=== PATIENT | male | born 1965 | race Caucasian/White ===

== ENCOUNTER 2019-02-22 18:38 | Observation (INO) | payer SELFPAY ==
[2019-02-22 20:44] LABS: Hemoglobin A1c 7.3 % (4.0-6.0)
[2019-02-22] MEDS ORDERED: Lorazepam 2 MG/ML VIAL ONE (20:51)
--- NOTE | 2019-02-22 21:25 | PDOC.EVN ---
Event Note - Event Note Event Note: H&P dictated [id number]
[2019-02-22] MEDS ORDERED: Aspirin 325 mg Enteric Coated Tablet PO SCH (22:00)
--- NOTE | 2019-02-23 02:35 | HP ---
CHIEF COMPLAINT: Speech abnormality. HISTORY OF PRESENT ILLNESS: Mr. Werner is a 53-year-old male with past medical history of morbid obesity, presents to the [facility] with sudden onset of expressive aphasia. As per patient, suddenly he was holding a cup in his hand and was trying to talk, but was unable to get the words right. The cup dropped and the symptoms lasted for about 75 minutes. Workup including a CT of the brain and CT angiogram, no acute finding. The patient's symptoms resolved. The patient is going to be admitted for further workup and management and monitoring. PAST MEDICAL HISTORY: Morbid obesity. PAST SURGICAL HISTORY: Anal fissure repair. SOCIAL HISTORY: Denies smoking, alcohol drinking, or drug abuse. FAMILY HISTORY: Reviewed and noncontributory. HOME MEDICATIONS: None. REVIEW OF SYSTEMS: Review of 14 systems negative except what is mentioned history of present illness. ALLERGIES: NO KNOWN ALLERGIES. PHYSICAL EXAMINATION: GENERAL: Patient is awake, alert, does not appear to be in distress, morbidly obese. VITAL SIGNS: Blood pressure 171/87, pulse is 70, respiratory rate is 18, temperature is 98.3. HEAD AND NECK: Normocephalic, atraumatic. Neck is supple. No JVD. CHEST: Clear bilateral air entry. HEART: S1, S2. Regular. ABDOMEN: Obese, soft. Bowel sounds present. NEUROLOGIC: Awake, alert, oriented x3. Speech is normal, no focal deficit. PSYCH: Unable to assess. EXTREMITIES: No clubbing or cyanosis. DIAGNOSTIC STUDIES: CT of the brain and CT angiogram of the head and neck was done and it was reported as unremarkable. No acute finding. ASSESSMENT: 1. Transient ischemic attack/expressive aphasia, resolved. 2. Morbid obesity. PLAN: 1. Admit. 2. Telemetry monitoring. 3. Aspirin. 4. Frequent neuro checks. 5. We will get lipid profile/panel and start the patient on statin. 6. Check hemoglobin A1c. 7. MRI of the brain in a.m. 8. 2D echo. 9. Deep venous thrombosis prophylaxis. Low molecular weight heparin. 10. Expected length of stay at least 1 midnight if patient is stable and further workup negative. Job ID: [id number]
[2019-02-23 02:43] VITALS: BMI 60.2
[2019-02-23 05:32] LABS: Cardiac Risk 5.6 (Less than 4.5)
[2019-02-23] MEDS ORDERED: metFORMIN 500 MG TAB PO SCH (08:00)
[2019-02-23] MEDS ORDERED: Enoxaparin Sodium 40 MG/0.4 ML SYRINGE SC SCH (09:00)
[2019-02-23] MEDS ORDERED: Aspirin 325 mg Enteric Coated Tablet PO SCH (09:00)
--- NOTE | 2019-02-23 11:02 | CON ---
DATE OF TELEMEDICINE CONSULTATION WITH RAMONE BENTLEY: 02-23-19 CHIEF COMPLAINT: Dysarthria. HISTORY OF PRESENT ILLNESS: The patient is a 53-year-old man who reports he just could not talk for about 45 minutes to an hour. The words were not coming out right and this occurred yesterday and he was not doing anything strenuous at that time and there is no prior history of a similar event. No other symptoms were described including weakness, numbness or dizziness or vision problems. There is no history of any heart problems. PREVIOUS MEDICAL HISTORY: He is quite healthy other than being overweight. HOME MEDICATIONS: None. PAST SURGICAL HISTORY: He had an anal fissure repair 30 years ago. FAMILY HISTORY: He has one sister who is 50, healthy. Mother of cancer at 64 or 65 years of age. Father, who is a radiologist is 78, he has current cardiac stents. SOCIAL HISTORY: He lives with his family and does not smoke or drink. REVIEW OF SYSTEMS: PULMONARY: Negative for any cough or shortness of breath. GI: Negative for nausea, vomiting, or diarrhea. GENITOURINARY: Negative for urinary urgency or frequency. DERMATOLOGIC: Negative for rash. NEUROLOGIC: Positive for dysarthria. LABORATORY DATA: White count 12.7, hemoglobin 14.3, hematocrit 44.1, platelet count 268. Chemistry; sodium 139, potassium 3.9, chloride 101, bicarbonate 25, BUN 14 , creatinine 0.97, glucose 194, triglycerides 243, cholesterol 214, LDL 127, HDL 38, heart disease risk ratio 5.6, and his CT head was reportedly negative. CT angio was negative except for nonvisualization of the right vertebra. These are outside reports reviewed from his chart. PHYSICAL EXAMINATION: VITAL SIGNS: Blood pressure 168/79, temperature 97.7, pulse 70, respiratory rate 16. GENERAL APPEARANCE: Well-built, well-nourished, slightly overweight man who reports his body weight to be 475 pounds. CHEST: Clear vesicular breathing. CARDIOVASCULAR: S1 and S2 heard. No murmurs. ABDOMEN: Soft and nontender. No organomegaly noted. NEUROLOGIC: Higher intellectual functions. Normal orientation to time, place, and person. Appropriate conversation. Cranial nerves 2 through 12, normal extraocular movements, no facial asymmetry noted, and tongue midline. No atrophy noted. Normal sensation of face bilaterally. Pupils are 2 mm, reactive. Normal hearing to finger rub bilaterally. Normal elevation of palate. Tongue midline. Motor, bulk normal. Tone, normal. Strength 5/5 throughout in iliopsoas, hamstrings, quadriceps, ankle dorsiflexion, plantar flexion, deltoid, biceps, triceps, wrist extension and flexion, finger extension and flexion bilaterally, and cerebellar normal [id number] and [id number], and sensory normal to touch bilaterally in upper and lower extremities. Deep tendon reflexes 1+ throughout. IMPRESSION: The patient is a 53-year-old man with history of sudden onset of dysarthria, sounds more like aphasia and dysarthria, difficulty in saying the words and he has negative history of stroke in his family. His examination was normal today. Diagnosis is most consistent with likely TIA. TREATMENT RECOMMENDATIONS: 1. Please start the patient on aspirin plus statin. 2. He may need consultation with specialist for weight loss. 3. He will also need echocardiogram and an MRI. If MRI is difficult to obtain or negative, he can be discharged home on current medications, mainly aspirin and statin. Job ID: [id number] [facility]
[2019-02-23 12:23] VITALS: BP 161/98; TEMP 98.1
--- NOTE | 2019-02-23 14:02 | DIS ---
DATE OF ADMISSION: 02/22/2019 DATE OF DISCHARGE: 02/23/2019 DISCHARGE DISPOSITION: To home. PRIMARY DISCHARGE DIAGNOSES: 1. Aphasia with TIA resolved. 2. Morbid obesity with BMI of 60. 3. Dyslipidemia. 4. New onset diabetes mellitus type 2. PROCEDURES DONE DURING HOSPITALIZATION: The patient has had CT brain and CT angio of brain done at [facility], which were negative. HbA1c 7.3, LDL 127, triglycerides 243. DISCHARGE MEDICATION: 1. Metformin 500 mg p.o. twice daily. 2. Aspirin 81 mg p.o. daily. 3. Lipitor 40 mg p.o. at bedtime. INPATIENT CONSULT: Dr. Sara Robledo for Neurology. ALLERGIES: NO KNOWN DRUG ALLERGIES. DISCHARGE PLAN: The patient to follow up with primary care physician in 1 week. He also needs to do fingerstick checks of blood glucose twice daily and record for 10 days to follow up with primary care physician for changes in his medication. BRIEF COURSE DURING HOSPITALIZATION: The patient initially got admitted with complaints of aphasia for a duration of 75 minutes. This happened suddenly at home. Initial CT angio of the brain done at [facility] has not revealed any acute pathology. He was also found to have new onset diabetes mellitus with HbA1c of 7.2. His LDL was 127 with triglycerides of 243. The patient's BMI is around 60.2, weighs around 468 pounds and is 6 foot 2 inches. He was apparently healthy up until he came here except for morbid obesity per the patient. The patient was counseled with regard to life-threatening obesity and drastic changes in his dietary habits and to follow exercise protocol to lose weight. He is otherwise hemodynamically stable with his aphasia completely resolving. He is ambulating and eating well prior to discharge. He is communicating very well prior to discharge. He was also evaluated by Dr. Sara Robledo for Neurology. Please note, I have seen and examined the patient on the day of discharge. Job ID: [id number]
[2019-02-23] MEDS ORDERED: Atorvastatin Calcium 40 MG TAB PO SCH (21:00)
== END 2019-02-23 13:47 | disposition home or self-care (01) ==
LOC: ERS 18:38 → 2SE 20:54
PROVIDERS: ADMIT Internal Medicine; ATTEND Internal Medicine
DX: G45.9 Transient cerebral ischemic attack, unspecified (principal); E11.9 Type 2 diabetes mellitus without complications; E66.01 Morbid (severe) obesity due to excess calories; Z68.44 Body mass index [BMI] 60.0-69.9, adult; Z79.82 Long term (current) use of aspirin; Z79.84 Long term (current) use of oral hypoglycemic drugs; Z79.899 Other long term (current) drug therapy
CPT/HCPCS: 36415; 36416; 80061; 83036; 93005; 93306; 96374; G0378; J1650; J2060